=== PATIENT | female | born 1985 | race Caucasian/White ===

== ENCOUNTER 2018-03-29 05:34 | Observation (INO) | payer OTHER ==
[2018-03-29] MEDS ORDERED: ceFAZolin 2 GM/DEXTROSE 100 ML IV ONE (05:56)
[2018-03-29] MEDS ORDERED: ACETAMINOPHEN 500 MG TAB PO ONE (05:56)
[2018-03-29] MEDS ORDERED: GABAPENTIN 400 MG CAP PO ONE (05:56)
[2018-03-29] MEDS ORDERED: PHENAZOPYRIDINE HCL 200 MG TAB PO ONE (05:56)
[2018-03-29] MEDS ORDERED: LR 1,000 ML IV ONE ×2 (05:58→06:05)
[2018-03-29] MEDS ORDERED: LIDOCAINE 1% 2 ML INJ ID PRN (06:05)
[2018-03-29] MEDS ORDERED: SCOPOLAMINE HYDROBROMIDE 1 MG/3 DAYS PATCH TD ONE (06:54)
--- NOTE | 2018-03-29 06:54 | PDANEPAE ---
ANE Past Medical History - Cardiovascular History Hx Hypertension: No Hx Arrhythmias: No Hx Chest Pain: No Hx Coronary Artery / Peripheral Vascular Disease: No Hx CHF / Valvular Disease: No Hx Palpitations: No - Pulmonary History Hx COPD: No Hx Asthma/Reactive Airway Disease: No Hx Recent Upper Respiratory Infection: No Hx Oxygen in Use at Home: No Hx Sleep Apnea: No Sleep Apnea Screening Result - Last Documented: Negative - Neurologic History Hx Cerebrovascular Accident: No Hx Seizures: No Hx Dementia: No - Endocrine History Hx Diabetes: No - Renal History Hx Renal Disorders: No - Liver History Hx Hepatic Disorders: No - Neurological & Psychiatric Hx Hx Neurological and Psychiatric Disorders: Yes Neurological / Psychiatric History Comment: depression - Cancer History Hx Cancer: No - Congenital Disorder History Hx Congenital Disorders: No - GI History Hx Gastrointestinal Disorders: Yes Gastrointestinal History Comment: gerd - Other Health History Other Health History: psoriasis. hysterectomy. psoriatic arthritis - Chronic Pain History Chronic Pain: Yes (psoriatic arthritis) - Surgical History Prior Surgeries: ANE Review of Systems Review of Systems: - Exercise capacity METS (RN): 4 METS ANE Patient History - Allergies Allergies/Adverse Reactions: No Known Allergies Allergy (Verified 03/20/18 09:53) - Home Medications Home Medications: Cranberry 03/20/18 [Last Taken 03/22/18] Diclofenac Sodium 03/20/18 [Last Taken 03/22/18] Fish Oil 1000 mg (*) 03/20/18 [Last Taken 03/22/18] Folic Acid 03/20/18 [Last Taken 03/22/18] Ibuprofen 03/20/18 [Last Taken 03/22/18] Methotrexate 03/20/18 [Last Taken 03/15/18] Multivitamins 03/20/18 [Last Taken 03/22/18] Niacin 03/20/18 [Last Taken 03/22/18] Omeprazole 03/20/18 [Last Taken 03/29/18] Zoloft 25mg (*) 03/20/18 [Last Taken 03/28/18] - NPO status NPO Since - Liquids (Date): 03/29/18 NPO Since - Liquids (Time): 05:12 NPO Since - Solids (Date): 03/28/18 NPO Since - Solids (Time): 22:00 - Smoking Hx Smoking Status: Never smoked - Family Anes Hx Family Hx Anesthesia Complications: none ANE Labs/Vital Signs - Vital Signs Blood Pressure: 113/75 Heart Rate: 85 Respiratory Rate: 16 O2 Sat (%): 95 Height: 154.94 cm Weight: 99.79 kg ANE Physical Exam - Airway Mallampati Score: Class 1 - ASA Status ASA Status: II ANE Anesthesia Plan Anesthesia Plan: general endotracheal anesthesia
[2018-03-29] MEDS ORDERED: SCOPOLAMINE HYDROBROMIDE 1 MG/3 DAYS PATCH TD SCH (07:00)
[2018-03-29] MEDS ORDERED: MIDAZOLAM 2 MG/2 ML VIAL ONE (07:00)
[2018-03-29] MEDS ORDERED: fentaNYL 100 MCG/2 ML INJ ONE ×2 (07:00→09:31)
[2018-03-29] MEDS ORDERED: PROPOFOL 200 MG/20 ML VIAL ONE (07:01)
[2018-03-29] MEDS ORDERED: METOCLOPRAMIDE 10 MG/2 ML VIAL ONE (07:05)
[2018-03-29] MEDS ORDERED: ONDANSETRON 4 MG/2 ML VIAL ONE (07:05)
[2018-03-29] MEDS ORDERED: ROCURONIUM 50 MG/5 ML VIAL ONE (07:05)
--- NOTE | 2018-03-29 07:14 | PDHPUP ---
History & Physical Update H&P update statement: This history and physical update is based on an assessment of the patient which was completed after admission or registration (within 24 hours), but prior to the surgery/procedure. H&P update: H&P reviewed & patient examined, no change in patient's condition since H&P completed
--- NOTE | 2018-03-29 07:16 | POSTOPPROG ---
Post Op Note Date of Operation: 03/29/18 Surgeon: Don Portillo Assistant Case Manager: Sara Lorenzo Anesthesiologist: Alejandra Anesthesia: GET(General Endotracheal) Pre-op Diagnosis: Endometriosis Post-op Diagnosis: Same Procedure: Robotic hyst/BSO, excise endo, Ureterolysis, TOT sling, cysto Findings: No evidence of bladder or urethral injury, ureters function at end of case Inf/Abcess present in the surg proc area at time of surgery?: No EBL: Minimal Complications: None Specimen(s): Uterus, tubes, and ovaries Endo
[2018-03-29] MEDS ORDERED: BUPIVACAINE/EPI 0.5% 30 ML SDV ONE (07:37)
[2018-03-29] MEDS ORDERED: KETOROLAC 30 MG/1 ML SDV ONE (09:03)
[2018-03-29] MEDS ORDERED: OXYCODONE/APAP 5/325 TAB PO PRN (09:08)
[2018-03-29] MEDS ORDERED: PROMETHAZINE HCL 25 MG/ML INJ IVP PRN (09:08)
[2018-03-29] MEDS ORDERED: ONDANSETRON DISINTEGRATING 4 MG TAB PO PRN (09:09)
[2018-03-29] MEDS ORDERED: ONDANSETRON 4 MG/2 ML VIAL IVP PRN (09:09)
[2018-03-29] MEDS ORDERED: LR 500 ML IV PRN (09:21)
[2018-03-29] MEDS ORDERED: NALOXONE HCL 0.4 MG/ML INJ IVP PRN ×2 (09:21→10:31)
--- NOTE | 2018-03-29 09:22 | POSTANESTH ---
Post Anesthetic Evaluation Cardiovascular Status: Normal, Stable Respiratory Status: Normal, Stable Level of Consciousness/Mental Status: Can Participate in Eval Pain Control: Adequate, Prn Tx Ordered Nausea/Vomiting Control: Adequate, Prn Tx Ordered Complications Possibly Related to Anesthesia: None Noted
[2018-03-29] MEDS ORDERED: LR 1,000 ML IV SCH (09:30)
[2018-03-29] MEDS: fentaNYL 100 MCG/2 ML INJ IVP PRN ×2 (09:34→09:46)
[2018-03-29] MEDS ORDERED: HYDROmorphONE/DILAUDID 1 MG/ML INJ ONE (10:06)
[2018-03-29] MEDS: HYDROmorphONE/DILAUDID 1 MG/ML INJ IVP PRN ×4 (10:07→11:36)
--- NOTE | 2018-03-29 10:29 | GOP ---
[f rep st] OPERATIVE REPORT DATE OF OPERATION: 03/29/2018 SURGEON: Don Portillo MD MAINFRAME PROGRAMMER ANALYST: MICHAEL Denton. ANESTHESIA: General. PREOPERATIVE DIAGNOSIS: 1. Endometriosis. 2. Dysmenorrhea. 3. Second-degree uterine prolapse. 4. Stress urinary incontinence. POSTOPERATIVE DIAGNOSIS: 1. Endometriosis. 2. Dysmenorrhea. 3. Second-degree uterine prolapse. 4. Stress urinary incontinence. PROCEDURE PERFORMED: 1. Robotic-assisted total laparoscopic hysterectomy, bilateral salpingo-oophorectomy. 2. Robotic excision of endometriosis in posterior cul-de-sac and bilateral ovarian fossa. 3. Bilateral ureterolysis. 4. Uterosacral ligament colpopexy. 5. Transobturator sling. 6. Cystoscopy. FINDINGS: SPECIMENS: 1. Uterus, bilateral tubes, and ovaries. 1. Pelvic peritoneum with endometriosis. 2. ESTIMATED BLOOD LOSS: Scant. DESCRIPTION OF PROCEDURE: The patient was taken to the operating room where she was identified. Gen eral anesthesia was administered and found to be adequate. She was placed in the lithotomy position and prepared and draped in normal sterile fashion. A Wilson catheter was placed in her bladder. A VC are uterine manipulator was placed into the endometrial cavity and sutured to the cervix. A 1 cm infraumbilical incision was made with a scalpel. The Veress needle with the CO2 gas flowing w as advanced into the peritoneal cavity. The abdomen was then insufflated with carbon dioxide gas. T he 12 mm trocar followed by the laparoscope were then inserted. The upper abdomen was examined and w as unremarkable. There was no evidence of endometriosis on either diaphragm, liver, stomach, gallbla dder or upper abdominal bowel. Two lateral ports were placed, on the right 1 and 1 on the left under direct visualization. She then was placed in Trendelenburg position and the da Shahana robot docked o n the left side. The instruments were then brought into the abdominal cavity under direct visualizat ion. She was found to have endometriosis overlying the uterus, both ovaries, the posterior cul-de-sac and more extensive along the ovarian fossa and uterosacral ligaments. A decision was made to remove both ovaries per the patient's request. The left round ligament was divided. Initially the broad ligame nt was incised to the bifurcation of the left common iliac vessels. A window was created in the post erior leaf anterior to the ureter which was easy to identify. This then skeletonized the left infund ibulopelvic vessels which were cauterized and transected. The ends of the broad ligament were then i ncised over the left uterine vessels and across the cervix. The bladder was gently dissected off the cervix and upper vagina. The left uterine vasculature was then cauterized and transected. The exac t same procedure was then performed on the patient's right side. A bilateral ureterolysis was required given the endometriosis overlying both ureters. The peritoneum at the pelvic brims was incised. The ureters were gently dissected free and lateralized off the ove rlying peritoneum and endometriosis from the pelvic brim all the way down to the bladder. Once this was accomplished, the entire ovarian fossa peritoneum with endometriosis was completely excised bilat erally. The specimens were sent for permanent section. A circumferential colpotomy incision was the n made with the hot aye and the specimen then was removed through the vagina. The vaginal cuff wa s then closed with a running 0 V-loc 180 suture. Bilateral uterosacral ligament colpopexy was perfor med by attaching the lateral aspects of the vaginal cuff to the ipsilateral uterosacral ligaments alexandro r the coccygeal-sacrospinous ligament complexes. The pelvis was then irrigated with sterile saline, and hemostasis was present. The robot was then undocked. The fascia was closed with 0 Vicryl, skin with 4-0 Monocryl and surgical adhesive. A mid urethral incision was then made with a scalpel. Tunnels were created bilaterally out to the ob turator internus muscles. The skin incisions were made over the obturator notches. The Halo trocar was placed through the left skin incision, redirected around the ischial pubic rami and out through t he vaginal incision using a vaginal finger as a guide. The lateral sulci were examined and no eviden ce of vaginal injury had occurred. The sling was then attached and brought out along the same course . The exact same procedure was performed on the patient's right side. The sling was then adjusted t o allow a small mid urethral gap. The vaginal epithelium was closed with 0 Vicryl. The skin with 4- 0 Monocryl. Cystoscopy was then performed. Both ureters had vigorous jets of urine. There was no evidence of bl adder nor urethral injury seen. No mesh nor suture was seen within the bladder nor urethra. No obvi ous pathology was seen. Anesthesia was then reversed and the patient taken the PACU awake, in stable condition. COMPLICATIONS: None. DISPOSITION: Patient stable to PACU. /[id number]/MODL
[2018-03-29] MEDS: SIMETHICONE 80 MG TAB CHEW PO SCH ×3 (15:00→21:27)
[2018-03-29] MEDS: HYDROCODONE/APAP 5/325 TAB PO PRN ×3 (15:01→22:42)
[2018-03-29] MEDS: KETOROLAC 30 MG/1 ML SDV IVP SCH ×2 (21:22→21:26)
[2018-03-29] MEDS: DOCUSATE SODIUM 100 MG CAP PO SCH (21:27)
[2018-03-30] MEDS: HYDROCODONE/APAP 5/325 TAB PO PRN ×4 (02:56→14:50)
[2018-03-30] MEDS: KETOROLAC 30 MG/1 ML SDV IVP SCH ×2 (02:56→13:16)
[2018-03-30] MEDS: DOCUSATE SODIUM 100 MG CAP PO SCH (08:12)
[2018-03-30] MEDS: SIMETHICONE 80 MG TAB CHEW PO SCH ×2 (08:12→12:21)
[2018-03-30] MEDS ORDERED: KETOROLAC 30 MG/1 ML SDV IVP SCH (09:15)
[2018-03-30 12:26] VITALS: BP 105/72
--- NOTE | 2018-03-30 14:38 | GDS ---
[f rep st] DISCHARGE SUMMARY DISCHARGE DIAGNOSES: 1. Endometriosis. 2. Dysmenorrhea. 3. Stress urinary incontinence. PROCEDURES: 1. Robotic-assisted total laparoscopic hysterectomy, bilateral salpingo-oophorectomy. 2. Excision of endometriosis. 3. Bilateral ureterolysis. 4. Uterosacral ligament colpopexy. 5. Transobturator sling. 6. Cystoscopy. HISTORY: Jovanna is a 32-year-old female with a long history of pelvic pain secondary to endometri osis. She also has stress urinary incontinence. She was taken to the operating room on 03/29/2018, where she underwent the above-mentioned procedures without complications. Her postoperative course was uneventful. The morning after surgery, she was ambulating, voiding, and tolerating a general diet. Her pain was well controlled with occasional [place] and Toradol. Her exa m was benign. She was voiding normally with a postvoid residual of 11 mL of urine. As a result, she was discharged home on postoperative day #1 in good condition. Medications included ibuprofen and [place] for pain. She is to follow up in the office 2 weeks after discharge or call sooner for any questions or problem s. /[id number]/MODL
[2018-04-01] MEDS ORDERED: PATCH REMOVAL 1 EA PATCH TD SCH (06:55)
== END 2018-03-30 16:15 | disposition home or self-care (01) ==
LOC: F3E 05:34 → FOB 10:58
PROVIDERS: ADMIT Obstetrics & Gynecology; ATTEND Obstetrics & Gynecology
DX: N80.3 Endometriosis of pelvic peritoneum (principal); N94.6 Dysmenorrhea, unspecified; N39.3 Stress incontinence (female) (male); N81.2 Incomplete uterovaginal prolapse; N92.0 Excessive and frequent menstruation with regular cycle; R10.2 Pelvic and perineal pain; K21.9 Gastro-esophageal reflux disease without esophagitis
CPT/HCPCS: 57288; 57425; 58571; 58662; G0378; C1771; J0690; J1170; J1885; J2250; J2405; J2704; J2765; J3010